=== PATIENT | male | born 2000 | race Caucasian/White ===

== ENCOUNTER 2023-05-06 15:27 | Emergency (ER) | payer BC, OTHER ==
[2023-05-06 15:34] VITALS: RESP 18; BMI 27.6
[2023-05-06] MEDS ORDERED: CEPHALEXIN MONOHYDRATE 500 MG CAPSULE (UD) PO ONE (17:51)
[2023-05-06 17:56] VITALS: BP 143/80; PULSE 84; TEMP 98.8
[2023-05-06] MEDS ORDERED: CEPHALEXIN MONOHYDRATE 500 MG CAPSULE (UD) ONE (18:11)
== END 2023-05-06 18:20 | disposition home or self-care (01) ==
LOC: JERFT 15:27 → JER 15:27 → JERFT 18:20
DX: M79.674 Pain in right toe(s) (principal); L53.9 Erythematous condition, unspecified; R22.41 Localized swelling, mass and lump, right lower limb; L03.115 Cellulitis of right lower limb
CPT/HCPCS: 73660-TC-FY; 99283-25